=== PATIENT | male | born 2000 | race African-American/Black ===

== ENCOUNTER 2019-11-02 21:29 | Emergency (ER) | payer OTHER ==
[2019-11-02] MEDS ORDERED: Acetaminophen 500 MG TAB ONE (21:50)
[2019-11-02] MEDS ORDERED: Ketorolac Tromethamine 30 MG/ML VIAL ONE (21:50)
[2019-11-02 22:03] LABS: #Eosinphils 0.1 thou/uL (0.0-0.7); #Lymphocytes 1.8 thou/uL (1.20-3.40); #Monocytes 1.1 thou/uL (0.11-0.59); #Neutrophils 6.6 thou/uL (1.40-6.50); %Basophils 0.4 % (0.0-1.0); %Eosinophils 0.9 % (0.0-10.0); %Lymphocytes 18.5 % (21.0-51.0); %Monocytes 11.6 % (0.0-10.0); %Neutrophils 68.6 % (42.0-75.0); Hemoglobin 14.6 g/dL (14.0-18.0); Mean Corpuscular HGB CONC 33.5 g/dL (32.0-36.0); Mean Corpuscular Hemoglobin 29.8 pg (27.0-31.0); Mean Platelet Volume 8.9 fL (7.4-10.4); Platelet Count 230 thou/uL (130-400); RBC Distribution Width 12.1 % (11.5-14.5); White Blood Cell (WBC) Count 9.7 thou/uL (4.8-10.8)
[2019-11-02 22:09] LABS: INR-International Normal Ratio 1.1; Prothrombin Time 13.9 SEC (12.0-14.7)
[2019-11-02 22:10] LABS: PTT 30.2 SEC (22.9-36.1)
[2019-11-02 22:22] LABS: ALT (SGPT) 19 U/L (8-55); AST (SGOT) 19 U/L (5-34); Albumin 4.5 g/dL (3.5-5.0); Alkaline Phosphatase 76 U/L (40-110); Anion Gap 12 mmol/L (10-20); BUN (Urea Nitrogen) 8 mg/dL (8.9-20.6); Bilirubin, Total 0.4 mg/dL (0.2-1.2); Calc. Creatinine Clearance 0 mL/min (70-130); Calcium 9.5 mg/dL (7.8-10.44); Carbon Dioxide 25 mmol/L (22-29); Chloride 102 mmol/L (98-107); Estimated GFR-MDRD 90; Globulin 3.3 g/dL (2.4-3.5); Glucose 100 mg/dL (70-105); Potassium 3.8 mmol/L (3.5-5.1); Protein, Total 7.8 g/dL (6.0-8.3); Sodium 135 mmol/L (136-145)
--- NOTE | 2019-11-02 22:40 | RAD ---
Portable chest: HISTORY: Cough COMPARISON: none FINDINGS: Lung olvera are clear. Heart and mediastinum appear unremarkable. Vascularity is normal. Visualized osseous structures unremarkable. IMPRESSION: No acute finding
== END 2019-11-02 23:46 | disposition home or self-care (01) ==
LOC: ERS 21:29
DX: J10.1 Influenza due to other identified influenza virus with other respiratory manifestations (principal); F32.9 Major depressive disorder, single episode, unspecified
CPT/HCPCS: 71045; 80053; 83605; 85025; 85610; 85730; 87040; 87804; 93005; 96361; 96374; J1885

== ENCOUNTER 2022-04-07 20:04 | Emergency (ER) | payer SELFPAY ==
[2022-04-07] MEDS ORDERED: Bupivacaine 0.25% 10 ML VIAL ONE (20:59)
[2022-04-07] MEDS ORDERED: Bacitracin 1 PK ONE (22:00)
== END 2022-04-07 22:25 | disposition home or self-care (01) ==
LOC: ERS 20:04
DX: L60.0 Ingrowing nail (principal); J45.909 Unspecified asthma, uncomplicated; F17.210 Nicotine dependence, cigarettes, uncomplicated
CPT/HCPCS: 11750; S0020